=== PATIENT | male | born 1965 | race Caucasian/White ===

== ENCOUNTER 2016-11-22 16:24 | Emergency (ER) | payer OTHER ==
[2016-11-22] MEDS ORDERED: PANTOPRAZOLE SODIUM 40 MG VIAL IV ONE ×2 (16:52→17:16)
--- NOTE | 2016-11-22 16:53 | ER Document Report ---
ED Medical Screen (RME) - General Chief Complaint: Vomiting Stated Complaint: VOMITING BLOOD Time Seen by Provider: 11/22/16 16:51 Notes: Patient arrives stating that he is vomiting blood. He states the first episode that looked black and coffee-ground. He states since that time he has vomited a lot of bright red blood. He states it is more than a coffee cup full. He also states he is been sweaty and lightheaded and feeling weak. He denies any pain. He states he does have a history of alcohol abuse but currently only drinks 2-3 beers per day. States he has had no alcohol today. Patient also states that he is currently being evaluated by his family doctor for possible cirrhosis. He states he does not know of any history of varices. He denies any blood in his stool or black or tarry stool. TRAVEL OUTSIDE OF THE [place] IN LAST 30 DAYS: No - Related Data Allergies/Adverse Reactions: No Known Allergies Allergy (Unverified 11/22/16 16:35) Past Medical History Renal/ Medical History: Denies: Hx Peritoneal Dialysis Physical Exam - Vital signs Vitals: Temp Pulse Resp BP Pulse Ox 98.6 F 103 H 20 112/76 98 11/22/16 16:37 11/22/16 16:37 11/22/16 16:37 11/22/16 16:37 11/22/16 16:37 Course - Vital Signs Vital signs: Temp Pulse Resp BP Pulse Ox 98.6 F 103 H 20 112/76 98 11/22/16 16:37 11/22/16 16:37 11/22/16 16:37 11/22/16 16:37 11/22/16 16:37
[2016-11-22] MEDS: NORMAL SALINE 1000 ML 1,000 ML IV PRN ×2 (17:05→17:23)
[2016-11-22 17:14] LABS: ABSOLUTE BASOPHILS # (AUTO) 0.1 10^3/uL (0.0-0.2); ABSOLUTE LYMPHOCYTES (AUTO) 0.8 10^3/uL (0.5-4.7); ABSOLUTE MONOCYTES (AUTO) 0.8 10^3/uL (0.1-1.4); ABSOLUTE NEUT (AUTO) 10.2 10^3/uL (1.7-8.2); BASOPHILS % (AUTO) 0.6 % (0-2); EOSINOPHILS % (AUTO) 0.1 % (0-6); HEMOGLOBIN 12.5 g/dL (13.5-17.0); HGB HCT DIFFERENCE 1.5; MEAN CORPUSCULAR HEMOGLOBIN 38.3 pg (27.0-33.4); MEAN CORPUSCULAR HGB CONC 34.7 g/dL (32.0-36.0); MONOCYTES % (AUTO) 6.3 % (3-13); RED BLOOD COUNT 3.26 10^6/uL (4.35-5.55); RED CELL DISTRIBUTION WIDTH 14.1 % (11.5-14.0); WHITE BLOOD COUNT 11.9 10^3/uL (4.0-10.5)
[2016-11-22 17:21] LABS: PROTHROMBIN TIME 16.9 SEC (11.4-15.4)
[2016-11-22 17:27] LABS: ALANINE AMINOTRANSFERASE 37 U/L (21-72); ALBUMIN 3.6 g/dL (3.5-5.0); ALKALINE PHOSPHATASE 89 U/L (38-126); ANION GAP 12 (5-19); ASPARTATE AMINO TRANSFERASE 52 U/L (17-59); BILIRUBIN,DIRECT 0.7 mg/dL (0.0-0.4); BILIRUBIN,TOTAL 2.7 mg/dL (0.2-1.3); BLOOD UREA NITROGEN 22 mg/dL (7-20); CALCIUM 9.2 mg/dL (8.4-10.2); CARBON DIOXIDE 23 mmol/L (22-30); CHLORIDE 108 mmol/L (98-107); CREATININE RESULT 0.68 mg/dL (0.52-1.25); GLUCOSE 174 mg/dL (75-110); POTASSIUM 4.9 mmol/L (3.6-5.0); SODIUM 143.4 mmol/L (137-145)
[2016-11-22 17:31] LABS: ALCOHOL < 10 mg/dL (NONE DETECTED)
[2016-11-22 17:34] LABS: ANISOCYTOSIS SLIGHT; PLATELET CLUMPS PRESENT; POLYCHROMASIA SLIGHT; TOXIC GRANULATION SLIGHT
[2016-11-22 17:35] LABS: MEAN CORPUSCULAR VOLUME 111 fl (80-97)
[2016-11-22] MEDS ORDERED: NORMAL SALINE 1000 ML 1,000 ML IV ONE (18:04)
[2016-11-22] MEDS ORDERED: NORMAL SALINE 500 ML with OCTREOTIDE ACETATE 500 MCG IV PRN ×2 (18:52)
[2016-11-22] MEDS ORDERED: OCTREOTIDE ACETATE INJ/PF 100 MCG/1 ML SDV IV ONE (18:53)
[2016-11-22] MEDS ORDERED: ONDANSETRON HCL INJ/PF 4 MG/2 ML SDV IV ONE (19:12)
[2016-11-22] MEDS ORDERED: METOCLOPRAMIDE HCL INJ/PF 10 MG/2 ML SDV IV ONE (21:42)
[2016-11-22 21:48] LABS: HEMATOCRIT 33.8 % (37.9-51.0); HEMOGLOBIN 11.8 g/dL (13.5-17.0); HGB HCT DIFFERENCE 1.6; MEAN CORPUSCULAR HEMOGLOBIN 39.3 pg (27.0-33.4); MEAN CORPUSCULAR HGB CONC 34.8 g/dL (32.0-36.0); MEAN CORPUSCULAR VOLUME 113 fl (80-97); RED BLOOD COUNT 2.99 10^6/uL (4.35-5.55); RED CELL DISTRIBUTION WIDTH 14.2 % (11.5-14.0); WHITE BLOOD COUNT 10.5 10^3/uL (4.0-10.5)
[2016-11-22] MEDS ORDERED: ONDANSETRON HCL INJ/PF 4 MG/2 ML SDV IV SCH (22:00)
--- NOTE | 2016-11-22 22:02 | ER Document Report ---
ED General - General Chief Complaint: Vomiting Stated Complaint: VOMITING BLOOD Time Seen by Provider: 11/22/16 16:51 TRAVEL OUTSIDE OF THE [place] IN LAST 30 DAYS: No - HPI Patient complains to provider of: Vomiting of blood Notes: Patient coming in today for evaluation after vomiting blood approximately 5 times. Patient states earlier in a.m. patient vomited twice coffee-ground material after that patient states 3 times of bright red blood last time was in her lobby. Patient states history of alcohol abuse currently is being worked up for possible evaluation of liver cirrhosis due to alcohol abuse. Recently had a colonoscopy performed however no upper GI was performed. Patient denies any other past medical history upon my evaluation patient is calm cooperative no signs of any acute distress. - Related Data Allergies/Adverse Reactions: No Known Allergies Allergy (Unverified 11/22/16 16:35) Past Medical History - Social History Smoking Status: Current Every Day Smoker Chew tobacco use (# tins/day): Yes Frequency of alcohol use: Heavy Drug Abuse: None Family History: Reviewed & Not Pertinent Patient has suicidal ideation: No Renal/ Medical History: Denies: Hx Peritoneal Dialysis Surgical Hx: Negative Review of Systems - Review of Systems Constitutional: No symptoms reported EENT: No symptoms reported Cardiovascular: No symptoms reported Respiratory: No symptoms reported Gastrointestinal: Other - Vomiting blood Genitourinary: No symptoms reported Male Genitourinary: No symptoms reported Musculoskeletal: No symptoms reported Skin: No symptoms reported Hematologic/Lymphatic: No symptoms reported Neurological/Psychological: No symptoms reported -: Yes All other systems reviewed and negative Physical Exam - Vital signs Vitals: Temp Pulse Resp BP Pulse Ox 98.6 F 103 H 20 112/76 98 11/22/16 16:37 11/22/16 16:37 11/22/16 16:37 11/22/16 16:37 11/22/16 16:37 Interpretation: Normal - General General appearance: Appears well, Alert - HEENT Head: Normocephalic, Atraumatic Eyes: Normal Pupils: PERRL - Respiratory Respiratory status: No respiratory distress Chest status: Nontender Breath sounds: Normal Chest palpation: Normal - Cardiovascular Rhythm: Regular Heart sounds: Normal auscultation Murmur: No - Abdominal Inspection: Normal Distension: No distension Bowel sounds: Normal Tenderness: Nontender Organomegaly: No organomegaly - Rectal Stool: Heme positive, Other - Stool light brown Hemorrhoids: None Prostate: Normal - Back Back: Normal, Nontender - Extremities General upper extremity: Normal inspection, Nontender, Normal color, Normal ROM , Normal temperature General lower extremity: Normal inspection, Nontender, Normal color, Normal ROM , Normal temperature, Normal weight bearing. No: Jeffery's sign - Neurological Neuro grossly intact: Yes Cognition: Normal Orientation: AAOx4 [place] Coma Scale Eye Opening: Spontaneous [place] Coma Scale Verbal: Oriented [place] Coma Scale Motor: Obeys Commands Lang Coma Scale Total: 15 Speech: Normal Motor strength normal: LUE, RUE, LLE, RLE Sensory: Normal - Psychological Associated symptoms: Normal affect, Normal mood - Skin Skin Temperature: Warm Skin Moisture: Dry Skin Color: Normal Course - Re-evaluation Re-evalutation: 11/22/16 21:58 Patient evaluation laboratory values showed thrombus cytopenia hemoglobin approximately 12. Patient's vital signs remained stable. Patient did have another bout of emesis prior to laboratory evaluation consisting of bright red blood. Patient was started on Protonix IV pushes. IV fluids were also given to the patient. Discussed with Dr. Crockett of [facility] agrees to set the patient in transfer as a with the lack of GI at this facility. Patient is manager clinic is located within the [facility] states Dr. Webber. Dr. Crockett accepted the patient patient had 1 more bouts of emesis prior to transfer despite Zofran will try Reglan also added octreotide. Otherwise patient alert and oriented no obvious distress currently this time was to be stable for transfer - Vital Signs Vital signs: Temp Pulse Resp BP Pulse Ox 98.6 F 103 H 27 H 94/75 L 96 11/22/16 16:37 11/22/16 16:37 11/22/16 21:44 11/22/16 21:44 11/22/16 21:44 - Laboratory Result Diagrams: 11/22/16 17:00 11/22/16 17:00 Laboratory results interpreted by me: 11/22/16 11/22/16 11/22/16 17:00 17:00 17:00 WBC 11.9 H RBC 3.26 L Hgb 12.5 L Hct 36.0 L MCV 111 H MCH 38.3 H RDW 14.1 H Plt Count 107 L Seg Neutrophils % 86.0 H Lymphocytes % 7.0 L Absolute Neutrophils 10.2 H PT 16.9 H APTT Chloride 108 H BUN 22 H Glucose 174 H Total Bilirubin 2.7 H Direct Bilirubin 0.7 H 11/22/16 20:30 WBC RBC Hgb Hct MCV MCH RDW Plt Count Seg Neutrophils % Lymphocytes % Absolute Neutrophils PT APTT 36.2 H Chloride BUN Glucose Total Bilirubin Direct Bilirubin Critical Care Note - Critical Care Note Total time excluding time spent on procedures (mins): 45 Comments: Multiple evaluation for patient with an upper GI bleed Discharge - Discharge Clinical Impression: Upper GI bleed, Alcohol use disorder, Thrombocytopenia Condition: Stable Disposition: [facility] Referrals: ODESSA LOPEZ DO [Primary Care Provider] - Follow up as needed
[2016-11-22 23:28] VITALS: BP 123/76
[2016-11-23 09:34] LABS: PATH REVIEW PATHOLOGIST REVIEWED
[2016-11-23] MEDS ORDERED: PANTOPRAZOLE SODIUM 40 MG VIAL IV SCH (10:00)
== END 2016-11-22 23:28 | disposition short-term general hospital (02) ==
LOC: ER 16:24
DX: K92.2 Gastrointestinal hemorrhage, unspecified (principal); F10.19 Alcohol abuse with unspecified alcohol-induced disorder; D69.6 Thrombocytopenia, unspecified; R11.10 Vomiting, unspecified; F17.210 Nicotine dependence, cigarettes, uncomplicated
CPT/HCPCS: 99291; 96361; 96374; 96375; 86900; 86901; 36415; 86850; 80307; 83690; 85025; 85027; 85610; 85730; 82271; 82272; 80053; J2765; J2354 ×2; S0164; J2405; J7030; J7040